=== PATIENT | male | born 1960 | race Caucasian/White ===

== ENCOUNTER 2016-02-09 20:09 | Emergency (ER) | payer MEDICARE, MEDICAID ==
[~2016-02-09] VITALS: Ht 182.9 cm; Wt 104.3 kg
[2016-02-09] MEDS ORDERED: ASPIRIN 81MG TA81 MG PO (20:31)
[2016-02-09] MEDS ORDERED: SEROQUEL300 MG PO (20:31)
[2016-02-09] MEDS ORDERED: FEOSOL325 MG PO (20:31)
[2016-02-09] MEDS ORDERED: CLARITIN10 MG PO (20:32)
[2016-02-09] MEDS ORDERED: HYDRALAZINE HCL25 M1 PO (20:32)
[2016-02-09] MEDS ORDERED: LISINOPRIL40 MG PO (20:32)
[2016-02-09] MEDS ORDERED: FLUOXETINE20 MG PO (20:33)
[2016-02-09] MEDS ORDERED: SIMVASTATIN40 MG PO (20:33)
[2016-02-09] MEDS ORDERED: CLOPIDOGREL75 MG PO (20:33)
[2016-02-09] MEDS ORDERED: TOPCARE OMEPRAZ20 MG PO (20:33)
[2016-02-09] MEDS ORDERED: SINGULAIR 10 MG10 MG PO (20:34)
[2016-02-09] MEDS ORDERED: GABAPENTIN300 MG PO (20:34)
[2016-02-09] MEDS ORDERED: FOLIC ACID 1MG T1 MG PO (20:35)
[2016-02-09] MEDS ORDERED: FUROSEMIDE 20MG20 MG PO (20:35)
[2016-02-09] MEDS ORDERED: IBUPROFEN800 MG PO (20:36)
--- NOTE | 2016-02-09 20:58 | Emergency Room Report ---
History of Present Illness Time Seen by [id number] Presenting Problem in Triage Pt arrived:Walked Presenting Problem:PT STATES HE LOST HIS BALANCE AND FELL AND HIT HEAD AND LANDED ON HIS TAILBONE. PT STATES THAT IT HAPPENED AT 0630 THIS AM. PT STATES HE DID NOT SEE PCP. PT STATES NECK IS ALSO HURTING "A LITTLE BIT" Onset of symptoms date/time:02/09/1603/26/629 or onset unknown for: Treatment Prior to Arrival: [facility] [facility] Provided by: Sepsis Risk Assessment: Temp: 97.8 B/P: 147/74 MAP: 98 Pulse: 66 Resp: 18 Recent fever? N Clinical Suspician of Infection? N Mental Status: 1 - Regular (Normal Baseline) Sepsis Risk:Low Sepsis Risk Have you (or family members/close friends) recently traveled outside the [place]? N If Yes, where/when: Have you had exposure to infectious disease within the past month? N TB? Other? Specify: Source patient, RN notes reviewed, family, old records Exam Limitations no limitations Comment trip type injury this am with head and neck injury and also tailbone with no neuro sx and no syncope - very brief loc and no chest pain Cardiac Chest Pain Chest pain indicative of cardiac No Timing/Duration this evening Severity moderate ALLERGIES Coded Allergies: Penicillins (02/09/16) Home Medications Reported Medications Quetiapine Fumarate (Seroquel 300MG) 150 MG PO QHS ASPIRIN (Aspirin) 81 MG PO DAILY Ferrous Sulfate (Feosol) 325 MG PO TID Hydralazine Hcl (Hydralazine 25MG Tab) 25 MG PO TID Lisinopril (Lisinopril 40MG) 40 MG PO DAILY Loratadine (Claritin 10MG Tab) 10 MG PO DAILY Simvastatin (Simvastatin 40MG Tab) 40 MG PO DAILY Fluoxetine Hcl (Fluoxetine 20MG) 20 MG PO DAILY Omeprazole 20 MG PO DAILY CLOPIDOGREL BISULFATE (Clopidogrel 75MG) 75 MG PO DAILY Gabapentin (Gabapentin 300MG) 300 MG PO TID Montelukast Sodium (Singulair 10MG) 10 MG PO QHS FOLIC ACID (Folic Acid) 1 MG PO DAILY Furosemide (Furosemide) 30 MG PO DAILY Ibuprofen (Ibuprofen 800MG) 800 MG PO Q6HP PRN PAIN History Medical History General CAD? No Angina: No NV: No Hypertension? Yes Hyperlipidemia? No CHF? No DVT? No PE? No COPD? Yes Asthma? No Anemia? No GERD? No Gastric ulcers? No GI Bleed? No Hernia? No Thyroid Problems? No Hypothyroidism? No CVA? Yes Seizures? No Diabetes? Yes Insulin Dependent: No Insulin Pump: No Home FSBS? Yes Renal Insuffiency? No End Stage Renal Disease? No UTI? No Stones? No BPH? No GB Disease: No Nephritic Syndrome? No Asplenia? No Hepatitis? No Sickle Cell Disease? No Arthritis? No Migraines? No Cataracts? No Glaucoma? No MRSA? No HIV? No TB? No Anxiety? No Depression? No Cancer? No More? No Immunization Hx DT/Tetanus > 10 Years Ago Surgical Hx Previous Surgery?Y HERNIA X 3 LEFT LEG SURGERY Social History Smoking Hx Smoker: Current Every Day Smoker Tobacco: Yes Type Cigarettes Packs/day < 1 Pack Are you/the child exposed to second-hand smoke: Yes Alcohol Alcohol: No Drugs none Review of Systems All Other Systems Reviewed and Negative Constitutional denies fever Eyes denies drainage ENT denies: ear pain, epistaxis, throat pain. Respiratory denies cough, denies shortness of breath, denies wheezing Cardiovascular denies chest pain, denies syncope Gastrointestinal denies abdominal pain, denies diarrhea, denies vomiting Genitourinary denies: dysuria, frequency, hesitancy, hematuria. Musculoskeletal denies back pain, denies joint pain, denies joint swelling, denies neck pain Skin denies rash Psychiatric/Neurological denies headache, denies seizure Physical Exam Vital Signs Vital Signs Date Time Temp Pulse Resp B/P Pulse O2 O2 Flow FiO2 Ox Delivery Rate 02/08 2023 97.8 66 18 147/74 98 - WBC >12,000 or <4,000 or 10% bands? 2 or more SIRS Criteria Met? B/P:147/74 MAP:98 Creatinine >2.0? UA output<0.5ml/kg/hr for 2 hrs? Platelet count >100,000? Lactate >2.0mmol/1? INR >1.2 or PTT > than 60 sec? Evidence of Organ Dysfunction? Provider documented clinical suspician of infection? N Sepsis Criteria Count: 0 Sepsis Risk: Low Sepsis Risk General Appearance no apparent distress Eye Exam - bilateral eye PERRL, bilateral eye EOMI Ear, Nose, Throat normal ENT inspection Neck supple Respiratory Status No: respiratory distress. 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 No Results/Orders Orders Procedure Date/time Status DIET-NOTHING BY MOUTH 02/[address] HEAD W/O CONTRAST 02/[address] CERVICAL SPINE W/O CONT. 02/[address] HEAD REQ 02/[address] SCAN REQ 02/08 2037 Complete SACRUM AND COCCYX 02/08 2037 Active PELVIS AP ONLY 02/08 2037 Active XRAY/CT/US XRAY/CT/US 1 XRAY pelvis, coccyx XR interpretation by reviewed by me Xray Results no fracture seen XRAY/CT/US 2 CT head, C-spine CT interpretation by discussed w/radiologist Time results known: 2209 CT Results no fracture seen, abnormal Departure Departure Time of Disposition 2208 Disposition DC Home or Self Care(routine) Clinical Impression Primary Impression: Head contusion Qualifiers: Encounter type: initial encounter Contusion of head detail: scalp Qualified Code: S00.03XA - Contusion of scalp, initial encounter Secondary Impressions: Cervical strain, acute Qualifiers: Encounter type: initial encounter Qualified Code: S16.1XXA - Strain of muscle, fascia and tendon at neck level, initial encounter Coccyx contusion Qualifiers: Encounter type: initial encounter Qualified Code: S30.0XXA - Contusion of lower back and pelvis, initial encounter Condition STABLE Referrals Lottie Ortiz (Family) Patient Instructions DI for Contusion Additional Instructions see pcp for follow up and resume prev meds Discharge Counseling Counseled pt/family regarding diagnosis, test results, medications/RX, follow up needs ED Critical Care Critical Care No at 0740
[2016-02-09 22:27] VITALS: BP 138/71
--- NOTE | 2016-02-10 08:19 | RADIOLOGY REPORT PS360 ---
SACRUM AND COCCYX HISTORY: Posttraumatic pain FALL, PAIN IN TAILBONE COMPARISON: None FINDINGS: No fracture, dislocation, destructive lesion, or other significant anomalies. Incidental vascular calcifications. IMPRESSION: No acute finding
--- NOTE | 2016-02-10 08:19 | RADIOLOGY REPORT PS360 ---
PELVIS AP ONLY HISTORY: Posttraumatic pain FALL, PAIN IN TAILBONE COMPARISON: None FINDINGS: No fracture or dislocation is evident. No significant degenerative change. No lytic or blastic change. The SI joints have an unremarkable appearance. Unremarkable soft tissues. Patient is somewhat rotated toward the left IMPRESSION: Negative pelvis.
--- NOTE | 2016-02-10 09:01 | RADIOLOGY REPORT PS360 ---
CT HEAD W/O CONTRAST HISTORY: Limited trauma with loss of consciousness, contusion or hematoma INJURY COMPARISON: None TECHNIQUE: Axial images obtained without contrast. Brain and bone windows reviewed. FINDINGS: No midline shift, mass effect, intracranial hemorrhage, hydrocephalus, or extra-axial fluid collection is evident. There is generalized atrophy with mild prominence of the ventricles likely due to the underlying volume loss. The calvarium has an unremarkable appearance. Partial opacification right mastoid air cells. The visualized paranasal sinuses are unremarkable. IMPRESSION: No acute intracranial pathology.
--- NOTE | 2016-02-10 09:07 | RADIOLOGY REPORT PS360 ---
CT CERVICAL SPINE W/O CONT INDICATION: Posttraumatic pain, fall with neck injury and pain INJURY COMPARISON: None TECHNIQUE: Axial images are obtained without contrast. Sagittal and coronal reformatted images are reviewed as well. FINDINGS: There is normal alignment. No fracture or dislocation is evident. Degenerative disc disease is present at C5-C6 with endplate hypertrophic change and bilateral foraminal narrowing. Upper thoracic images show a noncalcified 6 mm nodule in the right apex anteriorly. Bilateral partial mastoid opacification. IMPRESSION: 1. No acute fracture. 2. Degenerative disc disease C5-C6 with facet arthritic change. 3. 7 mm right upper lobe pulmonary nodule. Six-month follow-up recommended. 3. Bilateral partial mastoid opacification
== END 2016-02-09 22:29 | disposition home or self-care (01) ==
LOC: ER 20:09
DX: S00.03XA Contusion of scalp, initial encounter (principal); S16.1XXA Strain of muscle, fascia and tendon at neck level, initial encounter; S30.0XXA Contusion of lower back and pelvis, initial encounter; Z72.0 Tobacco use; I10 Essential (primary) hypertension; J44.9 Chronic obstructive pulmonary disease, unspecified; E11.9 Type 2 diabetes mellitus without complications; W01.0XXA Fall on same level from slipping, tripping and stumbling without subsequent striking against object, initial encounter; Y92.009 Unspecified place in unspecified non-institutional (private) residence as the place of occurrence of the external cause

== ENCOUNTER → 2016-03-05 | Outpatient (CLI) | payer MEDICARE, MEDICAID ==
[~2016-03-05] MED LIST: ASPIRIN 81MG TA81 MG PO; CLARITIN10 MG PO; CLOPIDOGREL75 MG PO; FEOSOL325 MG PO; FLUOXETINE20 MG PO; FOLIC ACID 1MG T1 MG PO; FUROSEMIDE 20MG20 MG PO; GABAPENTIN300 MG PO; HYDRALAZINE HCL25 M1 PO; IBUPROFEN800 MG PO; LISINOPRIL40 MG PO; SEROQUEL300 MG PO; SIMVASTATIN40 MG PO; SINGULAIR 10 MG10 MG PO; TOPCARE OMEPRAZ20 MG PO
[2016-03-05 10:33] LABS: HEMOGLOBIN 13.6 g/dL (14.1-18.0); LYMPH # 1.9 K/mm3 (0.7-4.5); LYMPH % 14.8 % (10-50)
[2016-03-05 11:35] LABS: BUN 14 mg/dL (7-18)
[2016-03-05 11:54] LABS: GFR (ESTIMATED) 57 ML/MIN (>60)
--- NOTE | 2016-03-05 13:09 | RADIOLOGY REPORT PS360 ---
FOOT-LT-3 VIEWS HISTORY: Follow-up fracture FOOT FX ORDERING PHYSICIAN: Lottie Ortiz PATIENT AGE: 55 years COMPARISON: 02/06/2016 FINDINGS: The cast has been removed. Healing fracture involves the mid shaft of the fifth metatarsal with mild medial angulation of the distal fracture fragment. There is prominent overlying callus formation. Fracture line is still visible. No new findings evident. IMPRESSION: Healing fifth metatarsal fracture
== END ==
LOC: LAB 10:13
PROVIDERS: Nurse Practitioner Family
DX: I10 Essential (primary) hypertension (principal); E13.9 Other specified diabetes mellitus without complications; L98.499 Non-pressure chronic ulcer of skin of other sites with unspecified severity; S92.902A Unspecified fracture of left foot, initial encounter for closed fracture